=== PATIENT | female | born 1950 | race Two or more races ===

== ENCOUNTER 2021-10-17 09:13 | Emergency (ER) | payer MEDICARE, BC ==
[~2021-10-17] VITALS: Ht 167.6 cm; Wt 68.0 kg
[2021-10-17 09:55] VITALS: BP 161/65
[2021-10-17] MEDS ORDERED: DOXY-286 PO (10:12)
[2021-10-17] MEDS ORDERED: PRED10TA PO (10:12)
[2021-10-17] MEDS ORDERED: BENZ100C19 PO (10:12)
[2021-10-17] MEDS ORDERED: cefTRIAXone SOD 1,000 MG VL IM ONE (10:45)
== END 2021-10-17 11:18 | disposition home or self-care (01) ==
LOC: ER 09:13
DX: J06.9 Acute upper respiratory infection, unspecified (principal); Z20.822 Contact with and (suspected) exposure to COVID-19
CPT/HCPCS: 36415; 71046; 87426